=== PATIENT | male | born 1980 | race Hispanic/Latino ===

== ENCOUNTER 2020-03-30 17:37 | Emergency (ER) | payer SELFPAY ==
[2020-03-30] MEDS ORDERED: Morphine 4 MG/ML VIAL ONE (18:03)
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
[2020-03-30] MEDS ORDERED: Ketorolac Tromethamine 30 MG/ML VIAL ONE (19:27)
[2020-03-30] MEDS ORDERED: Fentanyl 100 MCG/2 ML VIAL ONE (19:27)
[2020-03-30] MEDS ORDERED: PROPOFOL 20 ML ONE (19:50)
--- NOTE | 2020-03-30 20:37 | RAD ---
Exam:2 views left shoulder HISTORY: Status post reduction COMPARISON: 03/30/2020 at 6:14 PM FINDINGS: Interval reduction of previous noted anterior-inferior dislocation. Displaced fracture of t he left greater tuberosity is demonstrated. IMPRESSION: 1. Interval reduction 2. Redemonstration of a left greater tuberosity fracture.
== END 2020-03-30 21:58 | disposition home or self-care (01) ==
LOC: ERS 17:37
DX: S42.202A Unspecified fracture of upper end of left humerus, initial encounter for closed fracture (principal); S82.002A Unspecified fracture of left patella, initial encounter for closed fracture; S43.005A Unspecified dislocation of left shoulder joint, initial encounter; V19.9XXA Pedal cyclist (driver) (passenger) injured in unspecified traffic accident, initial encounter
CPT/HCPCS: 23650; 96372; 96374; 96375; 99152; J1885; J2270; J2704; J3010